=== PATIENT | male | born 1950 | race Caucasian/White ===

== ENCOUNTER → 2021-01-08 10:12 | Outpatient (BNVA) | payer MEDICARE, SELFPAY | PROVIDERS: PCP Family Medicine; Visit Provider Urology | DX: N40.0 Benign prostatic hyperplasia without lower urinary tract symptoms (principal); R97.20 Elevated prostate specific antigen [PSA] | CPT/HCPCS: 51798; 99212 ==

== ENCOUNTER 2022-01-08 11:27 | Outpatient (AMB) | payer MEDICARE, SELFPAY ==
--- NOTE | 2022-01-08 11:47 | A.OFFVIS_ITS ---
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 He is a patient of Dr. Mahmood. He is seen for the following urologic conditions. - elevated PSA - lower urinary tract symptoms Stable urinary performance Normal MAITE Known large prostate Continue to follow Elevated PSA/Abnormal MAITE: He presents for further evaluation of elevated PSA. Current management is medication with 5AR 04/02. Laboratory investigations include a total PSA evaluation November 2015 6.6 , a total PSA evaluation 07/02 2.5, 07/03 3.0, 07/04 1.7, 01/03 1.1, 01/04 1.9, 01/06 1.0 Imaging investigations include a transrectal ultrasound Yes Date 03/2016 Prostate Volume 55 Indiviudalized Prostate Cancer Risk Calculator < 5% high risk. A TRUS biopsy has been performed and is negative 04/02 His current IPSS IPSS Score 14 Symptoms include 07/03 , incomplete emptying, weak stream, and are stable. Overall symptoms are mild. His prior IPSS was moderate. Therapeutic plan will be continued surveillance. FORMERLY [facility] Medical History Feeling of incomplete bladder emptying Hx of pharyngitis Hx of upper respiratory infection Hyperlipidemia Nocturia Surgical History History of surgery Review of Systems Const Denies chills and Denies fever(s) Card Reports no additional complaints and Denies syncope Resp Denies cough GI Denies abdominal pain and Denies heartburn Reports as per HPI and Denies change in libido Neuro Denies syncope Psych Denies change in libido Endo Denies change in libido Physical Exam Const General: cooperative, healthy appearing, comfortable and no acute distress Orientation/consciousness: patient oriented x3 HEENT Face and sinus: Yes normal facial exam Mouth: moist mucous membranes Neck Neck: Yes normal visual inspection, Yes full ROM and Yes trachea midline Chest Chest palpation & inspection: normal inspection of the chest Resp Effort & Inspection: normal respiratory effort, able to speak in complete sentences and no respiratory distress GI Inspection: Yes normal to inspection Back/Spine/Pelvis Cervical Spine: normal cervical lordosis Thoracic/Lumbar Spine: thoracic and lumbar spine normal to inspection Skin General skin exam: no rashes or lesions noted Neuro General: patient oriented x3, gait normal, tone normal and moves all extremities Extrem General: Yes normal to inspection and Yes capillary refill normal Office Procedures Post Void Residual Post Residual Void Post Void Residual (PVR): 175 41481-Odnf Void Residual by ultrasound Results AMB Urinalysis, Automated UA Leukoctes 0 Raul/uL Last Edit by Marshall Renteria on 01/08/22 12:04 UA Nitrite Negative Last Edit by Marshall Renteria on 01/08/22 12:04 UA Urobilinogen 0.2 mg/dL Last Edit by Marshall Renteria on 01/08/22 12:04 UA Protein 0 mg/dL Last Edit by Marshall Renteria on 01/08/22 12:04 UA pH 6.0 Last Edit by Marshall Renteria on 01/08/22 12:04 UA Blood 0 Dylan/uL Last Edit by Marshall Renteria on 01/08/22 12:04 UA Specific Woody 1.015 Last Edit by Marshall Renteria on 01/08/22 12:04 UA Ketone Negative Last Edit by Marshall Renteria on 01/08/22 12:04 UA Bilirubin 0 mg/dL Last Edit by Marshall Renteria on 01/08/22 12:04 UA Glucose 0 mg/dL Last Edit by Marshall Renteria on 01/08/22 12:04 Results Reviewed Results Reviewed: Laboratory Last Values Urine pH (Auto) 6.0 01/08/22 11:48 Specific Woody (Auto) 1.015 01/08/22 11:48 Urine Protein (Auto) 0 mg/dL 01/08/22 11:48 Glucose (UA)(Auto) 0 mg/dL 01/08/22 11:48 Urine Ketones (Auto) Negative 01/08/22 11:48 Urine Blood (Auto) 0 Dylan/uL 01/08/22 11:48 Urine Nitrite (Auto) Negative 01/08/22 11:48 Urine Bilirubin (Auto) 0 mg/dL 01/08/22 11:48 Urine Urobilinogen (Auto) 0.2 mg/dL 01/08/22 11:48 Leukocyte Esterase (Auto) 0 Raul/uL 01/08/22 11:48 Assessment & Plan Assessment & Plan (1) Elevated PSA: Code(s): R97.20 - Elevated prostate specific antigen [PSA] (2) Benign prostatic hyperplasia with lower urinary tract symptoms: Code(s): N40.1 - Benign prostatic hyperplasia with lower urinary tract symptoms Plan 1 year follow-up Orders: Orders AMB Urinalysis Automated 01/08/22 Z13.9 - Encounter for screening, unspecified Prostate Specific Antigen 1 Year N40.1 - Benign prostatic hyperplasia with lower urinary tract symptoms, N13.8 - Other obstructive and reflux uropathy, R97.20 - Elevated prostate specific antigen [PSA] AMB Post Void Residual by ultrasound 01/08/22 N40.1 - Benign prostatic hyperplasia with lower urinary tract symptoms Patient Instructions: Imaging studies, laboratory and physical exam results were discussed and reviewed in detail. No major barriers to patient understanding were identified. An opportunity to ask questions regarding the treatment plan was provided. All questions were answered. The patient expressed understanding and agreement with the above treatment plan. The patient is aware they should contact our office by phone for worsening of their current condition or the appearance of new urologic symptoms. Compliance is encouraged with any medications and followup testing that is ordered. It is a privilege to participate in the urologic care of your patient. If you have any questions or concerns regarding treatment for the above conditions, or other urologic issues, please do not hesitate to contact me. The office telephone contact is [phone]. This note is constructed using voice recognition software. While every effort has been made to ensure accuracy interventional tech errors may have been included. Yours sincerely, Dr Arian Cho MD, [facility] - Urology Providers of Expert, Compassionate Care for the Genitourinary System Coding Level of Care Code Est Pt Level 3 (38343) Diagnoses Elevated PSA R97.20 Benign prostatic hyperplasia with lower urinary tract symptoms N40.1 CPT Codes Post Residual Void - PVR CPT Code: 24049-Czmo Void Residual by ultrasound ([id number])
== END 2022-01-08 13:34 | disposition home or self-care (01) ==
PROVIDERS: PCP Family Medicine; Visit Provider Urology
DX: R97.20 Elevated prostate specific antigen [PSA] (principal); N40.1 Benign prostatic hyperplasia with lower urinary tract symptoms
CPT/HCPCS: 99499

== ENCOUNTER → 2022-01-08 11:27 | Outpatient (BNVA) | payer MEDICARE, SELFPAY | PROVIDERS: PCP Family Medicine; Visit Provider Urology | DX: Z13.89 Encounter for screening for other disorder (principal) | CPT/HCPCS: 51798 ==

== ENCOUNTER → 2023-01-12 08:13 | Outpatient (BNVA) | payer MEDICARE, SELFPAY | PROVIDERS: PCP Family Medicine; Visit Provider Urology | DX: R97.20 Elevated prostate specific antigen [PSA] (principal); N40.1 Benign prostatic hyperplasia with lower urinary tract symptoms; N13.8 Other obstructive and reflux uropathy; R35.1 Nocturia | CPT/HCPCS: Q3014 ==

== ENCOUNTER 2024-01-11 10:08 | Outpatient (AMB) | payer MEDICARE, SELFPAY ==
--- NOTE | 2024-01-11 10:11 | MHC.OFFVIS ---
Intake Visit Reasons: 1Y PSA/PVR(set) Intake Note: Patient presents to the office today for a 1 year PSA/PVR. Urology Meds: finasteride Blood thinners: None PVR:0ml Emergency Veterinary Technician Required: No Accompanied by: Self / Same As Patient Allergies No Known Allergies Allergy (Verified 01/11/24 10:11) HPI Comments Details: Matteo Blancas is a very pleasant male. He is a patient of Dr. Mahmood. He is seen for the following urologic conditions. - elevated PSA - lower urinary tract symptoms Yearly follow-up Stable urinary performance - nocturia x1 occasionally 2 - adequate stream, sufficient bladder emptying Normal MAITE Known large prostate Continue to follow Finasteride - Tuesday, Tuesday, Tuesday Elevated PSA/Abnormal MAITE: He presents for further evaluation of elevated PSA. Current management is medication with 5AR 04/02. Laboratory investigations include a total PSA evaluation November 2015 6.6 , a total PSA evaluation 07/02 2.5, 07/03 3.0, 07/04 1.7, 01/03 1.1, 01/04 1.9, 01/06 1.0, 01/07 0.8 Imaging investigations include a transrectal ultrasound Yes Date 03/2016 Prostate Volume 55 Individualized Prostate Cancer Risk Calculator < 5% high risk A TRUS biopsy has been performed and is negative 04/02 Overall symptoms are mild. His prior IPSS was moderate Therapeutic plan will be continued surveillance PFSH Medical History Hx of upper respiratory infection Hx of pharyngitis Hyperlipidemia Feeling of incomplete bladder emptying Benign prostatic hyperplasia with lower urinary tract symptoms Nocturia Elevated PSA Surgical History History of surgery Review of Systems Const Denies chills and Denies fever(s) Card Reports no additional complaints and Denies syncope Resp Denies cough GI Denies abdominal pain and Denies heartburn Reports as per HPI and Denies change in libido Neuro Denies syncope Psych Denies change in libido Endo Denies change in libido Physical Exam Const General: cooperative, healthy appearing, comfortable and no acute distress Orientation/consciousness: patient oriented x3 HEENT Face and sinus: Yes normal facial exam Mouth: moist mucous membranes Neck Neck: Yes normal visual inspection, Yes full ROM and Yes trachea midline Chest Chest palpation & inspection: normal inspection of the chest Resp Effort & Inspection: normal respiratory effort, able to speak in complete sentences and no respiratory distress GI Inspection: Yes normal to inspection Back/Spine/Pelvis Cervical Spine: normal cervical lordosis Thoracic/Lumbar Spine: thoracic and lumbar spine normal to inspection Skin General skin exam: no rashes or lesions noted Neuro General: patient oriented x3, gait normal, tone normal and moves all extremities Extrem General: Yes normal to inspection and Yes capillary refill normal Office Procedures Post Void Residual Post Residual Void Post Void Residual (PVR): 0 25185-Mete Void Residual by ultrasound Assessment & Plan Assessment & Plan (1) Elevated PSA: Code(s): R97.20 - Elevated prostate specific antigen [PSA] Category: Medical (2) Benign prostatic hyperplasia with lower urinary tract symptoms: Code(s): N40.1 - Benign prostatic hyperplasia with lower urinary tract symptoms Category: Medical Plan 12 month follow-up Orders: Orders AMB Post Void Residual by ultrasound 01/11/24 N40.1 - Benign prostatic hyperplasia with lower urinary tract symptoms Patient Instructions: Imaging studies, laboratory and physical exam results were discussed and reviewed in detail. No major barriers to patient understanding were identified. An opportunity to ask questions regarding the treatment plan was provided. All questions were answered. The patient expressed understanding and agreement with the above treatment plan. The patient is aware they should contact our office by phone for worsening of their current condition or the appearance of new urologic symptoms. Compliance is encouraged with any medications and followup testing that is ordered. It is a privilege to participate in the urologic care of your patient. If you have any questions or concerns regarding treatment for the above conditions, or other urologic issues, please do not hesitate to contact me. The office telephone contact is [phone]. This note is constructed using voice recognition software. While every effort has been made to ensure accuracy help desk agent errors may have been included. Yours sincerely, Dr Arian Cho MD, [facility] - Urology Providers of Expert, Compassionate Care for the Genitourinary System Coding Level of Care Code Est Pt Level 4 (18719) Diagnoses Elevated PSA R97.20 Benign prostatic hyperplasia with lower urinary tract symptoms N40.1 CPT Codes Post Residual Void - PVR CPT Code: 21812-Wbqv Void Residual by ultrasound ([id number])
== END 2024-01-11 10:57 | disposition home or self-care (01) ==
PROVIDERS: PCP Family Medicine; Visit Provider Urology
DX: R97.20 Elevated prostate specific antigen [PSA] (principal); N40.1 Benign prostatic hyperplasia with lower urinary tract symptoms
CPT/HCPCS: 99213

== ENCOUNTER → 2024-01-11 10:08 | Outpatient (BNVA) | payer MEDICARE, SELFPAY | PROVIDERS: PCP Family Medicine; Visit Provider Urology | DX: N40.1 Benign prostatic hyperplasia with lower urinary tract symptoms (principal); N13.8 Other obstructive and reflux uropathy; R97.20 Elevated prostate specific antigen [PSA] | CPT/HCPCS: 51798; 99212 ==

== ENCOUNTER 2025-01-09 10:55 | Outpatient (AMB) | payer MEDICARE, SELFPAY ==
--- NOTE | 2025-01-09 10:55 | MHC.OFFVIS ---
Intake Visit Reasons: 1yr/PVR Intake Note: Patient presents to the office today for a 1 year PVR. Urology Meds: finasteride Blood thinners: None PVR:12 ml's Cognos Consultant Required: No Accompanied by: Self / Same As Patient Allergies No Known Allergies Allergy (Verified 01/09/25 10:58) HPI Comments Details: Matteo Blancas is a very pleasant male. He is a patient of Dr. Mahmood. He is seen for the following urologic conditions. - elevated PSA - lower urinary tract symptoms Yearly follow-up PVR stable Stable urinary performance - nocturia x1 occasionally 2 - adequate stream, sufficient bladder emptying Normal MAITE Known large prostate Continue to follow Finasteride - Tuesday, Tuesday, Tuesday Elevated PSA/Abnormal MAITE: He presents for further evaluation of elevated PSA. Current management is medication with 5AR 04/02. Laboratory investigations include a total PSA evaluation November 2015 6.6 , a total PSA evaluation 07/02 2.5, 07/03 3.0, 07/04 1.7, 01/03 1.1, 01/04 1.9, 01/06 1.0, 01/07 0.8, 12/08 0.7 Imaging investigations include a transrectal ultrasound Yes Date 03/2016 Prostate Volume 55 Individualized Prostate Cancer Risk Calculator < 5% high risk A TRUS biopsy has been performed and is negative 04/02 Overall symptoms are mild. His prior IPSS was moderate Therapeutic plan will be continued surveillance FORMERLY [facility], [facility] Medical History Hx of upper respiratory infection Hx of pharyngitis Hyperlipidemia Feeling of incomplete bladder emptying Benign prostatic hyperplasia with lower urinary tract symptoms Nocturia Elevated PSA Surgical History History of surgery Review of Systems Const Denies chills and Denies fever(s) Card Reports no additional complaints and Denies syncope Resp Denies cough GI Denies abdominal pain and Denies heartburn Reports as per HPI and Denies change in libido Neuro Denies syncope Psych Denies change in libido Endo Denies change in libido Physical Exam Const General: cooperative, healthy appearing, comfortable and no acute distress Orientation/consciousness: patient oriented x3 HEENT Face and sinus: Yes normal facial exam Mouth: moist mucous membranes Neck Neck: Yes normal visual inspection, Yes full ROM and Yes trachea midline Chest Chest palpation & inspection: normal inspection of the chest Resp Effort & Inspection: normal respiratory effort, able to speak in complete sentences and no respiratory distress GI Inspection: Yes normal to inspection Back/Spine/Pelvis Cervical Spine: normal cervical lordosis Thoracic/Lumbar Spine: thoracic and lumbar spine normal to inspection Skin General skin exam: no rashes or lesions noted Neuro General: patient oriented x3, gait normal, tone normal and moves all extremities Extrem General: Yes normal to inspection and Yes capillary refill normal Office Procedures Post Void Residual Post Residual Void Post Void Residual (PVR): 12 20090-Xvte Void Residual by ultrasound Results AMB Urinalysis, Automated UA Leukoctes 0 Raul/uL Last Edit by Jessi Lopez [place] on 01/09/25 12:11 UA Nitrite Negative Last Edit by Jessi Lopez [place] on 01/09/25 12:11 UA Urobilinogen 3.5 mg/dL Last Edit by Jessi Lopez [place] on 01/09/25 12:11 UA Protein 0 mg/dL Last Edit by Jessi Lopez [place] on 01/09/25 12:11 UA pH 7.5 Last Edit by Jessi Lopez [place] on 01/09/25 12:11 UA Blood 10 Dylan/uL Last Edit by Jessi Lopez [place] on 01/09/25 12:11 UA Specific Banks 1.005 Last Edit by Jessi Lopez [place] on 01/09/25 12:11 UA Ketone Negative Last Edit by Jessi Lopez [place] on 01/09/25 12:11 UA Bilirubin 0 mg/dL Last Edit by Jessi Lopez [place] on 01/09/25 12:11 UA Glucose 0 mg/dL Last Edit by Jessi Lopez [place] on 01/09/25 12:11 Results Reviewed Results Reviewed: Laboratory Last Values Urine pH (Auto) 7.5 01/09/25 11:23 Specific Banks (Auto) 1.005 01/09/25 11:23 Urine Protein (Auto) 0 mg/dL 01/09/25 11:23 Glucose (UA)(Auto) 0 mg/dL 01/09/25 11:23 Urine Ketones (Auto) Negative 01/09/25 11:23 Urine Blood (Auto) 10 Dylan/uL 01/09/25 11:23 Urine Nitrite (Auto) Negative 01/09/25 11:23 Urine Bilirubin (Auto) 0 mg/dL 01/09/25 11:23 Urine Urobilinogen (Auto) 3.5 mg/dL 01/09/25 11:23 Leukocyte Esterase (Auto) 0 Raul/uL 01/09/25 11:23 Assessment & Plan Assessment & Plan (1) Elevated PSA: Code(s): R97.20 - Elevated prostate specific antigen [PSA] Category: Medical (2) Benign prostatic hyperplasia with lower urinary tract symptoms: Code(s): N40.1 - Benign prostatic hyperplasia with lower urinary tract symptoms Category: Medical Plan Twelve month follow-up Orders: Orders AMB Post Void Residual by ultrasound Today N40.1 - Benign prostatic hyperplasia with lower urinary tract symptoms AMB Urinalysis Automated Today Z13.9 - Encounter for screening, unspecified Medications: Refilled finasteride 5 mg PO Q OTHER DAY 45 tabs 3RF Patient Instructions: This note is constructed using voice recognition software. While every effort has been made to ensure accuracy coding clerk errors may have been included. Imaging studies, laboratory and physical exam results were discussed and reviewed in detail. No major barriers to patient understanding were identified. An opportunity to ask questions regarding the treatment plan was provided. All questions were answered. The patient expressed understanding and agreement with the above treatment plan. The patient is aware they should contact our office by phone for worsening of their current condition or the appearance of new urologic symptoms. Compliance is encouraged with any medications and followup testing that is ordered. It is a privilege to participate in the urologic care of your patient. If you have any questions or concerns regarding treatment for the above conditions, or other urologic issues, please do not hesitate to contact me. The office telephone contact is [phone]. Sincerely, Dr Arian Cho MD, [facility] - Urology Compassionate Specialist Care for the Genitourinary System Coding Level of Care Code Est Pt Level 4 (67779) Complex EM visit Add On G2211 Diagnoses Elevated PSA R97.20 Benign prostatic hyperplasia with lower urinary tract symptoms N40.1 CPT Codes Post Residual Void - PVR CPT Code: 34120-Ufct Void Residual by ultrasound ([id number])
== END 2025-01-09 11:54 | disposition home or self-care (01) ==
LOC: HO.HUSH 10:56
PROVIDERS: PCP Family Medicine; Visit Provider Urology
DX: R97.20 Elevated prostate specific antigen [PSA] (principal); N40.1 Benign prostatic hyperplasia with lower urinary tract symptoms; Z13.9 Encounter for screening, unspecified
CPT/HCPCS: 99214; G2211

== ENCOUNTER → 2025-01-09 10:55 | Outpatient (BNVA) | payer MEDICARE, SELFPAY | PROVIDERS: PCP Family Medicine; Visit Provider Urology | DX: N40.1 Benign prostatic hyperplasia with lower urinary tract symptoms (principal) | CPT/HCPCS: 51798; 81003; 99212 ==